=== PATIENT | male | born 1950 | race Caucasian/White ===

== ENCOUNTER 2020-10-04 11:42 | Day surgery (SDCO) | payer MEDICARE, OTHER ==
[~2020-10-04] VITALS: Ht 180.3 cm; Wt 87.3 kg
[2020-10-04 12:39] LABS: BASOPHIL 0.6 % (0-2); EOSINOPHIL 2.1 % (0-7); HCT 40.2 % (42.0-52.0); HGB 14.1 g/dl (13.2-18.0); LYMPHOCYTE 39.2 % (15-48); MCH 32.9 pg (25.0-31.0); MCHC 35.1 g/dL (32.0-36.0); MCV 93.9 fL (78.0-100.0); MONOCYTE 11.5 % (0-12); MPV 10.4 fL (6.0-9.5); NEUTROPHIL 46.3 % (41-80); NRBC 0; PLT 216 K/uL (150-400); RBC 4.28 M/uL (4.70-6.00); RDW 12.1 % (11.5-14.0); WBC 7.7 K/uL (4.0-10.5)
[2020-10-04 13:01] LABS: ALBUMIN 3.9 g/dL (3.4-5.0); BILIRUBIN - TOTAL 0.5 mg/dL (0.2-1.0); BUN/CREAT RATIO (CALC) 21.6 RATIO; CREATININE 0.88 mg/dL (0.67-1.17); GLOBULIN (CALCULATION) 3.4 g/dL; MAGNESIUM 1.8 mg/dL (1.8-2.4); POTASSIUM 4.4 mmol/L (3.5-5.1); TOTAL PROTEIN 7.3 g/dL (6.4-8.2)
[2020-10-04 19:08] LABS: CORONAVIRUS 2019 SARS-COV-2 NEGATIVE (NEGATIVE); INFLUENZA A NAA NEGATIVE (NEGATIVE)
[2020-10-04] MEDS ORDERED: ATORVASTATIN CA10 MG PO (23:28)
[2020-10-04] MEDS ORDERED: THIORIDAZINE HC50 MG PO ×2 (23:30→23:33)
[2020-10-04] MEDS ORDERED: METFORMIN HCL500 M1 PO (23:31)
[2020-10-04] MEDS ORDERED: MELOXICAM7.5 MG PO (23:32)
--- NOTE | 2020-10-05 12:56 | NUR ---
10/05 A referral was made to [facility] per family choice; educted to affliation. A referral was made to [facility] for a rw. - Report given to Mary.
[2020-12-29] MEDS ORDERED: TYLENOL500 MG PO (10:51)
== END 2020-10-05 15:50 | disposition home health service (06) ==
LOC: FER 11:42 → FMS 18:13
PROVIDERS: Emergency Medicine; ADMIT Allergy & Immunology Allergy
DX: I95.1 Orthostatic hypotension (principal); S02.2XXA Fracture of nasal bones, initial encounter for closed fracture; I10 Essential (primary) hypertension; F20.9 Schizophrenia, unspecified; E78.5 Hyperlipidemia, unspecified; M19.90 Unspecified osteoarthritis, unspecified site; Z79.899 Other long term (current) drug therapy; Z20.822 Contact with and (suspected) exposure to COVID-19; W01.0XXA Fall on same level from slipping, tripping and stumbling without subsequent striking against object, initial encounter
CPT/HCPCS: 36415; 70450; 70486; 72125; 73060; 80053; 83735; 84484; 85025; 90471; 90714; 93005; 97116; 97161; 97166; 97530; G0378; J7040; J7120; U0002

== ENCOUNTER 2021-01-25 05:28 | Day surgery (SDC) | payer MEDICARE, OTHER ==
[~2021-01-25] VITALS: Ht 180 cm; Wt 84.0 kg
[~2021-01-25 05:28] MED LIST: ATORVASTATIN CA10 MG PO; MELOXICAM7.5 MG PO; METFORMIN HCL500 M1 PO; THIORIDAZINE HC50 MG PO; TYLENOL500 MG PO
[2021-01-25] MEDS ORDERED: PERCOCET 5-3251 EACH PO (07:02)
--- NOTE | 2021-01-25 13:11 | NUR ---
PT. WILL RETURN HOME WITH SPOUSE. NO NEEDS ANTICIPATED AT THIS TIME.
[2021-01-26 06:46] LABS: BASOPHIL 0.1 % (0-2); EOSINOPHIL 0 % (0-7); HCT 35.2 % (42.0-52.0); HGB 11.7 g/dl (13.2-18.0); LYMPHOCYTE 11.9 % (15-48); MCHC 33.2 g/dL (32.0-36.0); MCV 96.2 fL (78.0-100.0); MONOCYTE 13.3 % (0-12); MPV 10.2 fL (6.0-9.5); NEUTROPHIL 74.2 % (41-80); NRBC 0; PLT 204 K/uL (150-400); RBC 3.66 M/uL (4.70-6.00); RDW 12.7 % (11.5-14.0); WBC 13.2 K/uL (4.0-10.5)
[2021-01-26 07:07] LABS: BUN/CREAT RATIO (CALC) 22.6 RATIO; CREATININE 0.84 mg/dL (0.67-1.17)
[2021-01-26] MEDS ORDERED: FEOSOL325 MG PO (09:13)
[2021-01-26] MEDS ORDERED: ASPIRIN81 MG PO (09:13)
== END 2021-01-26 11:51 | disposition home or self-care (01) ==
LOC: FSDC 05:28 → FAS 05:28 → FMS 05:28 → FSDC 09:14 → EDSTATUS 09:15 → FMS 09:15 → FAS 01-26 11:51 → FMS 01-26 11:51
PROVIDERS: Orthopaedic Surgery
DX: M19.011 Primary osteoarthritis, right shoulder (principal); M75.101 Unspecified rotator cuff tear or rupture of right shoulder, not specified as traumatic; E11.9 Type 2 diabetes mellitus without complications; F20.9 Schizophrenia, unspecified; R00.0 Tachycardia, unspecified; E78.5 Hyperlipidemia, unspecified; J98.11 Atelectasis; Z85.828 Personal history of other malignant neoplasm of skin; Z79.84 Long term (current) use of oral hypoglycemic drugs; Z79.899 Other long term (current) drug therapy
CPT/HCPCS: 36415; 73020; 80048; 82962; 85025; 94010; 94762; 97116; 97161; 97166; 97530-GP; 97535; C1713; C1776; J0171; J0690; J0697; J1100; J1885; J2250; J2270; J2370; J2405; J2704; J2795; J3010; J7120